=== PATIENT | female | born 1995 | race Caucasian/White ===

== ENCOUNTER 2016-05-15 00:47 | Emergency (ER) | payer OTHER ==
[~2016-05-15] VITALS: Ht 172.7 cm; Wt 72.7 kg
[~2016-05-15 00:47] MED LIST: ADVAIR 100/501 DISK IH; ALBUTEROL17 G1 IH; FALMINA1 EACH PO; FLEXERIL10 MG PO; MOTRIN800 MG PO; ZOFRAN ODT4 MG PO
[2016-05-15 01:36] LABS: HEMATOCRIT 39.8 % (36.0-46.0); MCHC 35.9 G/DL (30.0-36.0); MCV 83.4 FL (83-99); MEAN PLAT.VOLUME 8.9 uM^3 (9.5-12.4); PLATELET COUNT 424 K/uL (156-360); RBC DIS.WIDTH-CV 12.4 % (11.8-14.6); RBC DIS.WIDTH-SD 37.1 % (39-53); RED BLOOD COUNT 4.77 M/uL (3.80-5.20); WHITE BLOOD COUNT 17.6 K/uL (4.1-10.2)
[2016-05-15 01:52] LABS: CHLORIDE 106 mEq/L (99-109); POTASSIUM 3.6 mEq/L (3.7-5.4); SODIUM 140 mEq/L (136-147)
[2016-05-15 01:54] LABS: GLUCOSE 126 mg/dL (70-99)
[2016-05-15 01:55] LABS: ANION GAP 14 MEQ/L (2-14)
[2016-05-15 01:56] LABS: TOTAL BILIRUBIN 0.8 mg/dL (0.0-1.0)
[2016-05-15 01:57] LABS: ALKALINE PHOSPHATASE 62 IU/L (3-129)
[2016-05-15 01:58] LABS: GFR ESTIMATE (CALCULATED) > 59 mL/min/
[2016-05-15 01:59] LABS: DIRECT BILIRUBIN 0.3 mg/dL (0.0-0.3); UREA NITROGEN (BUN) 13 mg/dL (9-23)
[2016-05-15 02:01] LABS: LIPASE 18 U/L (1.0-51.0)
[2016-05-15 02:09] LABS: QUANTITATIVE HCG < 4.0 MIU/ML
[2016-05-15] MEDS ORDERED: ZOFRAN4 MG PO (03:08)
[2016-05-15 03:16] VITALS: BP 120/86
== END 2016-05-15 03:16 | disposition home or self-care (01) ==
LOC: EME 00:47
PROVIDERS: Emergency Medicine
DX: R10.9 Unspecified abdominal pain (principal); R11.2 Nausea with vomiting, unspecified; E86.0 Dehydration; D72.829 Elevated white blood cell count, unspecified; J45.909 Unspecified asthma, uncomplicated
CPT/HCPCS: 74176; 80048; 80076; 83690; 84702; 85027; 93005; 99281; 99284; J2405; J7030